=== PATIENT | female | born 1975 | race Caucasian/White ===

== ENCOUNTER 2017-03-11 11:01 | Emergency (ER) | payer SELFPAY ==
[~2017-03-11] VITALS: Ht 157.5 cm; Wt 56.0 kg
[2017-03-11 12:31] VITALS: Ht 157.5 cm; Wt 56.0 kg
[2017-03-11 19:11] VITALS: BP 98/51
== END 2017-03-11 19:11 | disposition home or self-care (01) ==
LOC: ED 11:01
DX: J09.X2 Influenza due to identified novel influenza A virus with other respiratory manifestations (principal); R50.9 Fever, unspecified
CPT/HCPCS: 87804; J1885; J7613